=== PATIENT | male | born 1970 | race African-American/Black ===

== ENCOUNTER 2017-09-04 23:12 | Emergency (ER) | payer MEDICAID, MEDICARE, OTHER | END 2017-09-05 01:25 | disposition E | LOC: BURERS 23:12 | DX: I46.9 Cardiac arrest, cause unspecified (principal); D50.0 Iron deficiency anemia secondary to blood loss (chronic); I10 Essential (primary) hypertension; F31.9 Bipolar disorder, unspecified; Z79.899 Other long term (current) drug therapy | CPT/HCPCS: 92950 ==